=== PATIENT | female | born 1990 | race African-American/Black ===

== ENCOUNTER 2017-07-03 15:38 | Emergency (ER) | payer OTHER ==
[~2017-07-03] VITALS: Ht 165.1 cm; Wt 77.7 kg
[~2017-07-03 15:38] MED LIST: FLAGYL500 MG PO; NOHOMEMEDS; PREDNISONE10 M1 PO
[2017-07-03] MEDS ORDERED: MOTRIN600 MG PO (17:56)
[2017-07-03 18:04] VITALS: BP 117/82
== END 2017-07-03 18:04 | disposition home or self-care (01) ==
LOC: EME 15:38
DX: M79.89 Other specified soft tissue disorders (principal); M25.572 Pain in left ankle and joints of left foot
CPT/HCPCS: 73610; 99281; 99283

== ENCOUNTER 2017-11-10 12:07 | Emergency (ER) | payer OTHER ==
[~2017-11-10] VITALS: Ht 165.1 cm; Wt 82.3 kg
[~2017-11-10 12:07] MED LIST changes: +MOTRIN600 MG PO
[2017-11-10 12:13] VITALS: BP 115/76
[2017-11-10] MEDS ORDERED: CORTIZONE-10 PL57 GM TP (13:14)
[2017-11-10] MEDS ORDERED: BENADRYL50 MG PO (13:14)
== END 2017-11-10 13:35 | disposition home or self-care (01) ==
LOC: EME 12:07
DX: S90.462A Insect bite (nonvenomous), left great toe, initial encounter (principal); W57.XXXA Bitten or stung by nonvenomous insect and other nonvenomous arthropods, initial encounter; Y99.0 Civilian activity done for income or pay
CPT/HCPCS: 99281; 99284